=== PATIENT | female | born 1985 | race Caucasian/White ===

== ENCOUNTER 2020-01-20 16:09 | Emergency (ER) | payer OTHER, SELFPAY ==
[2020-01-20] MEDS ORDERED: LORazepam 2 MG/ML VIAL ONE ×2 (16:41→18:24)
[2020-01-20] MEDS ORDERED: NA CHLORIDE 0.9% 1,000 ML ONE (16:41)
[2020-01-20 17:07] LABS: Absolute Lymphocytes (CBC) 2.3 K/uL (0.7-4.9); Basophils % 0.7 % (0-1.3); Hematocrit 42.9 % (36.0-45.0); Lymphocytes % 24.1 % (15.3-44.8); MPV 7.6 fL (7.6-11.3); RBC Red Blood Cell Count 4.69 M/uL (3.86-4.86)
[2020-01-20 17:49] LABS: ALT/SGPT 32 U/L (12-78); AST/SGOT 20 U/L (15-37); Albumin 4.3 g/dL (3.4-5.0); Alkaline Phosphatase 82 U/L (45-117); BUN Blood Urea Nitrogen 11 mg/dL (7-18); Bicarbonate 20 mmol/L (21-32); Bilirubin Direct < 0.1 mg/dL (0-0.2); Bilirubin Total 0.3 mg/dL (0.2-1.0); Glucose Level 113 mg/dL (74-106); Magnesium 1.7 mg/dL (1.8-2.4); NT PRO-BNP 57 pg/mL (<125); Protein, Total 8.3 g/dL (6.4-8.2); Sodium Level 136 mmol/L (136-145); Troponin (Emerg Dept Use Only) < 0.02 ng/mL (0.0-0.045)
--- NOTE | 2020-01-20 17:49 | RAD REPORT ---
EXAM DESCRIPTION: CT - Head Brain Wo Cont - 01/20/2020 5:38 pm CLINICAL HISTORY: DIZZINESS Headache, drowsiness COMPARISON: <Comparisons> TECHNIQUE: All CT scans are performed using dose optimization technique as appropriate and may inclu de automated exposure control or mA/KV adjustment according to patient size. FINDINGS: No intracranial hemorrhage, hydrocephalus or extra-axial fluid collection.No areas of brai n edema or evidence of midline shift. The paranasal sinuses and mastoids are clear. The calvarium is intact. IMPRESSION: No acute intracranial abnormality.
--- NOTE | 2020-01-20 18:06 | RAD REPORT ---
EXAM DESCRIPTION: RAD - Chest Single View - 01/20/2020 6:01 pm CLINICAL HISTORY: syncope Chest pain. COMPARISON: No comparisons FINDINGS: Portable technique limits examination quality. The lungs are grossly clear. The heart is normal in size. No displaced fractures. IMPRESSION: No acute intrathoracic process suspected.
--- NOTE | 2020-01-20 18:17 | EDPHYS ---
Physician Documentation [facility] Name: Francine Bryant Age: 34 yrs Sex: Female : 1985 Arrival Date: 01/20/2020 Time: 16:20 Bed 17 Private MD: ED Physician jA Isaac HPI: 01/19 16:22 This 34 yrs old Female presents to ER via EMS with complaints of Dizziness. jmm 16:22 The patient presents with feeling faint, lightheadedness. Onset: The symptoms/episode jmm began/occurred acutely, just prior to arrival. Modifying factors: The symptoms are alleviated by nothing, the symptoms are aggravated by nothing. Associated signs and symptoms: Pertinent positives: tingling. This is a 34 year old female with a history of anxiety that presents to the ED with complaints of lightheadedness with tingling to her right arm. Denies weakness. States having multiple episodes since without tingling to her arm. Patient states having the sense she may faint. Denies chest pain. . Historical: - Allergies: 16:24 No Known Allergies; - Home Meds: 16:24 None [Active]; - PMHx: 16:24 Anxiety; - PSHx: 16:24 Tubal ligation; - Immunization history:: Adult Immunizations up to date. - Social history:: Smoking status: Patient denies any tobacco usage or history of. Patient uses alcohol, occasionally. ROS: 16:22 Constitutional: Negative for fever, chills, and weight loss, Cardiovascular: Negative jmm for chest pain, palpitations, and edema, Respiratory: Negative for shortness of breath, cough, wheezing, and pleuritic chest pain, Abdomen/GI: Negative for abdominal pain, nausea, vomiting, diarrhea, and constipation. 16:22 Neuro: Positive for dizziness. 16:22 All other systems are negative. Exam: 16:22 Constitutional: This is a well developed, well nourished patient who is awake, alert, jmm and in no acute distress. Head/Face: atraumatic. Eyes: EOMI, no conjunctival erythema appreciated ENT: Moist Mucus Membranes Neck: Trachea midline, Supple Chest/axilla: Normal chest wall appearance and motion. Cardiovascular: Regular rate and rhythm. No edema appreciated Respiratory: Normal respirations, no respiratory distress appreciated Abdomen/GI: Non distended, soft Back: Normal ROM Skin: General appearance color normal MS/ Extremity: Moves all extremities, no obvious deformities appreciated, no edema noted to the lower extremities Neuro: Awake and alert, normal gait Psych: Behavior is normal, Mood is normal, Patient is cooperative and pleasant 17:30 ECG was reviewed by the Attending Physician. [facility] Vital Signs: 16:11 BP 133 / 84; Pulse 92; Resp 24; Pulse Ox 99% ; ah 16:21 BP 133 / 84; Pulse 94; Resp 12; Temp 97.7; Pulse Ox 100% ; Weight 85.73 kg; Height 5 ah ft. 4 in. (162.56 cm); 17:00 BP 125 / 84; Pulse 91; Resp 17; Pulse Ox 100% ; ah 18:19 BP 127 / 85; Pulse 94; Resp 18; Pulse Ox 97% ; ah 16:21 Body Mass Index 32.44 (85.73 kg, 162.56 cm) MDM: 16:22 Patient medically screened. [facility] 18:07 Data reviewed: vital signs, nurses notes. Counseling: I had a detailed discussion with [facility] the patient and/or guardian regarding: the historical points, exam findings, and any diagnostic results supporting the discharge/admit diagnosis, lab results, radiology results, the need for outpatient follow up. 18:15 Data reviewed: lab test result(s), EKG, radiologic studies, CT scan, plain films. ED [facility] course: Patient states she feels much better. Patient is advised to follow up with pcp for reevaluation. Patient is otherwise given strict return precautions. Patient understood and agrees with the plan of care. . 01/19 16:29 Order name: Basic Metabolic Panel; Complete Time: 17:51 [facility] 01/19 16:29 Order name: CBC with Diff; Complete Time: 17:11 [facility] 01/19 16:29 Order name: LFT's; Complete Time: 17:51 [facility] 01/19 16:29 Order name: Magnesium; Complete Time: 17:51 [facility] 01/19 16:29 Order name: NT PRO-BNP; Complete Time: 17:51 [facility] 01/19 16:29 Order name: PT-INR; Complete Time: 17:11 [facility] 01/19 16:29 Order name: Troponin (emerg Dept Use Only); Complete Time: 17:51 [facility] 01/19 16:29 Order name: XRAY Chest (1 view); Complete Time: 18:17 [facility] 01/19 16:29 Order name: EKG; Complete Time: 16:30 [facility] 01/19 16:29 Order name: CT Head Brain wo Cont; Complete Time: 18:03 [facility] 01/19 18:17 Order name: Urine Dipstick--Ancillary (enter results) 01/19 16:29 Order name: Cardiac monitoring; Complete Time: 16:37 [facility] 01/19 16:29 Order name: EKG - Nurse/Tech; Complete Time: 17:08 [facility] 01/19 16:29 Order name: IV Saline Lock; Complete Time: 17:07 [facility] 01/19 16:29 Order name: Labs collected and sent; Complete Time: 17:07 [facility] 01/19 16:29 Order name: O2 Per Protocol; Complete Time: 17:06 [facility] 01/19 16:29 Order name: O2 Sat Monitoring; Complete Time: 17:06 [facility] 01/19 16:30 Order name: Urine Dipstick-Ancillary (obtain specimen); Complete Time: 18:14 jmm EC:30 Rate is 90 beats/min. Rhythm is regular. QRS [place] is Normal. IA interval is normal. QRS jmm interval is normal. QT interval is normal. No Q waves. T waves are Normal. No ST changes noted. Reviewed by me. Administered Medications: 16:44 Drug: Ativan 0.5 mg Route: IVP; Site: right antecubital; hb 18:14 Follow up: Response: No adverse reaction 16:45 Drug: NS 0.9% 1000 ml Route: IV; Rate: 1 bolus; Site: right antecubital; hb 18:14 Follow up: Response: No adverse reaction; IV Status: Completed infusion 18:21 Drug: Ativan 1 mg Route: IVP; Site: right antecubital; 21:20 Follow up: Response: No adverse reaction Disposition: 01/20 05:37 Co-signature as Attending Physician, Aj Isaac MD I agree with the assessment and rozina plan of care. Disposition: 01/20/20 18:16 Discharged to Home. Impression: Syncope and collapse. - Condition is Stable. - Discharge Instructions: Near-Syncope. - Medication Reconciliation Form, Thank You Letter, Antibiotic Education, Prescription Opioid Use form. - Follow up: Private Physician; When: 1 - 2 days; Reason: Recheck today's complaints, Continuance of care, Re-evaluation by your physician. Signatures: Dispatcher [employer] EDAj Ashley MD MD cha Mickail, Joel, PA PA jmm Baxter, Heather, KASANDRA SLAUGHTER Nettie Herr RN RN Corrections: (The following items were deleted from the chart) 01/19 19:03 18:16 01/20/2020 18:16 Discharged to Home. Impression: Syncope and collapse. Condition ah is Stable. Forms are Medication Reconciliation Form, Thank You Letter, Antibiotic Education, Prescription Opioid Use. Follow up: Private Physician; When: 1 - 2 days; Reason: Recheck today's complaints, Continuance of care, Re-evaluation by your physician. luciano
--- NOTE | 2020-01-20 18:17 | ER ---
Nurse's Notes [facility] Name: Francine Bryant Age: 34 yrs Sex: Female : 1985 Arrival Date: 01/20/2020 Time: 16:20 Bed 17 Private MD: Diagnosis: Syncope and collapse Presentation: 01/19 16:21 Chief complaint: EMS states: PT was sitting at her desk at work and became dizzy and ah felt her right arm was tingling. Pt states it may be anxiety. Coronavirus screen: Proceed with normal triage. Ebola Screen: No symptoms or risks identified at this time. Initial Sepsis Screen: Does the patient meet any 2 criteria? No. Patient's initial sepsis screen is negative. Does the patient have a suspected source of infection? No. Patient's initial sepsis screen is negative. Risk Assessment: Do you want to hurt yourself or someone else? Patient reports no desire to harm self or others. Onset of symptoms was January 20, 2020. 16:21 Method Of Arrival: EMS: [facility] 16:21 Acuity: HEIDI 3 Historical: - Allergies: 16:24 No Known Allergies; - Home Meds: 16:24 None [Active]; - PMHx: 16:24 Anxiety; - PSHx: 16:24 Tubal ligation; - Immunization history:: Adult Immunizations up to date. - Social history:: Smoking status: Patient denies any tobacco usage or history of. Patient uses alcohol, occasionally. Screenin:27 Abuse screen: Denies threats or abuse. Nutritional screening: No deficits noted. Tuberculosis screening: No symptoms or risk factors identified. Fall Risk None identified. Assessment: 16:20 General: Appears in no apparent distress. Behavior is cooperative, anxious. Pain: Denies pain. 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 Cardiovascular: Heart tones S1 S2 present Capillary refill < 3 seconds Patient's skin is warm and dry. Rhythm is sinus rhythm. Respiratory: Airway is patent Respiratory effort is even, unlabored. Derm: Skin is intact, is healthy with good turgor. 17:40 Reassessment: Pt returned from CT scan via WC. 17:50 Reassessment: awaiting on results to come back from lab and radiology. No needs voiced. Spouse at bedside. Vital Signs: 16:11 BP 133 / 84; Pulse 92; Resp 24; Pulse Ox 99% ; ah 16:21 BP 133 / 84; Pulse 94; Resp 12; Temp 97.7; Pulse Ox 100% ; Weight 85.73 kg; Height 5 ft. 4 in. (162.56 cm); 17:00 BP 125 / 84; Pulse 91; Resp 17; Pulse Ox 100% ; ah 18:19 BP 127 / 85; Pulse 94; Resp 18; Pulse Ox 97% ; ah 16:21 Body Mass Index 32.44 (85.73 kg, 162.56 cm) ED Course: 16:20 Patient arrived in ED. 16:20 Odell Crabtree PA is PHCP. [facility] 16:20 Aj Isaac MD is Attending Physician. [facility] 16:21 Nettie Herr, KASANDRA is Primary Nurse. 16:23 Triage completed. 16:45 Inserted saline lock: 20 gauge in right antecubital area, using aseptic technique. hb Blood collected. 17:08 Patient has correct armband on for positive identification. Bed in low position. Call mh5 light in reach. Adult w/ patient. Warm blanket given. equipment monitor phototypesetting on. Pulse ox on. NIBP on. 17:37 CT Head Brain wo Cont In Process Unspecified. EDMS 18:01 XRAY Chest (1 view) In Process Unspecified. EDMS 18:27 Patient notified of wait time. 18:50 No provider procedures requiring assistance completed. IV discontinued, intact, bleeding controlled, No redness/swelling at site. Pressure dressing applied. Administered Medications: 16:44 Drug: Ativan 0.5 mg Route: IVP; Site: right antecubital; hb 18:14 Follow up: Response: No adverse reaction 16:45 Drug: NS 0.9% 1000 ml Route: IV; Rate: 1 bolus; Site: right antecubital; hb 18:14 Follow up: Response: No adverse reaction; IV Status: Completed infusion 18:21 Drug: Ativan 1 mg Route: IVP; Site: right antecubital; 21:20 Follow up: Response: No adverse reaction Outcome: 18:16 Discharge ordered by MD. wolf 18:50 Discharged to home ambulatory. 18:50 Condition: good 18:50 Discharge instructions given to patient, Instructed on discharge instructions, follow up and referral plans. Demonstrated understanding of instructions, follow-up care. 19:03 Patient left the ED. Signatures: Dispatcher [employer] EDMS Odell Crabtree PA PA jmm Baxter, Heather, KASANDRA SLAUGHTER Vidhi Hayes [facility] Nettie Herr RN RN
[2020-01-20 19:12] VITALS: TEMP 97.7
[2020-01-20 19:13] LABS: Urine Blood NEGATIVE (NEG); Urine Glucose NEGATIVE (NEG); Urine Protein NEGATIVE (NEG)
[2020-01-20 19:14] VITALS: BP 127/85; O2SAT 97
--- NOTE | 2020-01-21 06:26 | EKG ---
Test Date: 2020-01-20 Test Time: 17:28:11 [employer] Machine Helper: YESICA MEASUREMENT RESULTS: Intervals: Rate: 90 IN: 182 QRSD: 86 QT: 368 QTc: 450 [place]: P: 47 IN: 182 QRS: 36 T: 24 INTERPRETIVE STATEMENTS: Normal sinus rhythm Normal ECG No previous ECG available for comparison Electronically Signed On 01-21-20 06:24:23 CDT by Jaleel Hinds
== END 2020-01-20 19:03 | disposition home or self-care (01) ==
LOC: ER 16:09
DX: R55 Syncope and collapse (principal)
CPT/HCPCS: 36415; 70450; 71045; 80048; 80076; 81003; 83735; 83880; 84484; 85025; 85610; 93005; 96361; 96374; 99284; J7030

== ENCOUNTER 2020-04-20 14:15 | Emergency (ER) | payer BC, SELFPAY ==
--- OUTSIDE RECORDS SUMMARY | 2020-04-20 14:31 | XMS REPORT | Continuity of Care Document ---
:1985 Author Organization [facility] [place] Information Exchange Care Team Providers Name Role Phone [facility] [place] [facility] Unavailable Un available Problems Problem Status Onset Classification Date Comments Sourc e Date Reported FLU LIKE Active [facility] SYMPTOMS 8 [place] R10.811 - RIGHT Active O PID UPPER QUADRANT 7 [place] and ABDOMINAL Generalized Active Problem 01/29/2020 [facility] anxiety Group disorder (disorder) Asthma Active Problem 01/29/2020 Medica l (disorder) Group, [facility] [place] Numbness of Active Problem 01/29/2020 [facility] upper limb Group (finding) Obesity Active Problem 01/29/2020 Medica l (disorder) Group, [facility] [place] Seasonal Active Problem 01/29/2020 Medica l allergic Group, rhinitis [facility] (disorder) [place] Medications Medication Details Route Status Patient Ordering Order Source Instructions Provider Date Sertraline 50 See Active 01/22/20 [facility] MG Oral Instructions 20 Medical Tablet , 1/2 tab PO Group [Zoloft] QHS x 1 week, thhen 1 full tab PO QHS., # 90 tab, 1 Refill(s), [facility]acy: [id number], 87, kg, 01/22/20 10:14:00 CDT, Weight Sertraline 50 See Active 11/01/19 MH MG Oral Instructions 18 Medical Tablet , 1/2 tab PO Group [Zoloft] QHS x 1 week, thhen 1 full tab PO QHS., # 30 tab, 2 Refill(s), Pharmacy: [facility] [id number] Allergies, Adverse Reactions, Alerts Substance Category Reaction Severity Reaction Status Date Comments S ource type Reported No Known Assertion Drug MH Medication allergy Medic al Allergies Group Immunizations No Data Provided for This Section Results Order Name Results Value Reference Date Interpretation Comments Barbara rce Range CHEM PANEL Glucose Lvl 93 65 - 99 01/21 Result Comment: Medical
Group Fasting reference interval

Lab test performed by:
[facility]
[address]
[place] [id number]
Enmanuel Solorzano CHEM PANEL BUN 14 7 - 25 01/21 Medical Group CHEM PANEL Creatinine 0.77 0.50 - 01/21 MH Lvl 1.10 Medical Group CHEM PANEL eGFR NON-AFR. 101 > OR = 60 01/21 [place] mL/min/1.7 /2019 Medical 3m2 Group CHEM PANEL eGFR 117 > OR = 60 01/21 [place] mL/min/1.7 /2020 Medical 3m2 Group CHEM PANEL B/C Ratio NOT 6 - 22 01/21 APPLICABLE Medical Group CHEM PANEL Sodium Lvl 137 135 - 146 01/21 MH [facility] CHEM PANEL Potassium Lvl 4.6 3.5 - 5.3 01/21 [facility] Group CHEM PANEL Chloride Lvl 104 98 - 110 01/21 [facility] Group CHEM PANEL CO2 24 20 - 32 01/21 [facility] CHEM PANEL Calcium Lvl 9.3 8.6 - 10.2 01/21 MH [facility] CHEM PANEL Total Protein 7.1 6.1 - 8.1 01/21 MH [facility] CHEM PANEL Albumin Lvl 4.4 3.6 - 5.1 01/21 [facility] CHEM PANEL Globulin 2.7 1.9 - 3.7 01/21 [facility] CHEM PANEL A/G Ratio 1.6 1.0 - 2.5 01/21 Medical Group CHEM PANEL Bili Total 0.4 0.2 - 1.2 01/21 [facility] CHEM PANEL Alk Phos 64 31 - 125 01/21 MH [facility] Group CHEM PANEL ASPARTATE 17 10 - 30 01/21 TRANSAMINASE Medical Group CHEM PANEL ALANINE 19 6 - 29 01/21 AMINOTRANSFER /2019 Medical ASE Group HEMATOLOGY WBC X 10x3 5.8 3.8 - 10.8 01/21 Result Comment: Medical
Lab Group test performed by:
[facility]
[address]
[place] [id number]
Enmanuel Solorzano HEMATOLOGY RBC X 10x6 4.53 3.80 - 01/21 MH 5.10 Medical Group HEMATOLOGY Hgb 13.9 11.7 - 01/21 MH 15.5 Medical Group HEMATOLOGY Hct 42.7 35.0 - 01/21 MH 45.0 Medical Group HEMATOLOGY MCV 94.3 80.0 - 01/21 MH 100.0 Medical Group HEMATOLOGY MCH 30.7 27.0 - 01/21 MH 33.0 Medical Group HEMATOLOGY MCHC 32.6 32.0 - 01/21 MH 36.0 Medical Group HEMATOLOGY RDW 11.9 11.0 - 01/21 MH 15.0 Medical Group HEMATOLOGY Platelet 261 140 - 400 01/21 Medical [facility] HEMATOLOGY MPV 8.8 7.5 - 12.5 01/21 Medical [facility] HEMATOLOGY Neutrophils # 3909 1500 - 01/21 MH 7800 Medical Group HEMATOLOGY Lymphocytes # 1386 850 - 3900 01/21 Medical [facility] HEMATOLOGY Monocytes # 412 200 - 950 01/21 Medical Group HEMATOLOGY Eosinophils # 52 15 - 500 01/21 Medical [facility] HEMATOLOGY Basophils # 41 0 - 200 01/21 Medical [facility] HEMATOLOGY Segs 67.4 01/21 Medical [facility] HEMATOLOGY Lymphocytes 23.9 01/21 Medical [facility] HEMATOLOGY Monocytes 7.1 01/21 Medical [facility] HEMATOLOGY Eosinophils 0.9 01/21 Medical [facility] HEMATOLOGY Basophils 0.7 01/21 Medical Group LIPIDS Chol 173 <200 mg/dL 01/21 Result Comment: Medical
Lab Group test performed by:
[facility]
[address]
[place] [id number]
Enmanuel Solorzano LIPIDS HDL 57 > OR = 50 01/21 mg/dL Medical Group LIPIDS Trig 90 <150 mg/dL 01/21 Medical Group LIPIDS LDL 98 01/21 Result (Calculated) Comment: Medical Reference Group range: <100

Desirabl e range <100 mg/dL for primary prevention;
<70 mg/dL for patients with CHD or diabetic patients
with > or = 2 CHD risk factors.

LDL-C is now calculated using the Bridget s
calculat ion, which is a validated novel method providing
better accuracy than the Friedewald equation in the
estimati on of LDL-C.
Nirav SIMENTAL et al. ESTEE. 2013;310(19): 7098-1982
(http:// education.[employer] .Bebo/faq/FAQ1 64) LIPIDS CHD Risk 3.0 <5.0 01/21 (CALC) Medical Group LIPIDS Non HDL Chol 116 <130 mg/dL 01/21 Result Comment: For Medical patients with Group diabetes plus 1 major ASCVD risk
factor, treating to a non-HDL-C goal of <100 mg/dL
(LDL-C of <70 mg/dL) is considered a therapeutic
option. Pathology Reports No Data Provided for This Section Diagnostic Reports Report Value Date Source Chest 2 views DX CHEST TWO VIEW 08/27/2017 [facility] INDICATION: Cough. COMPARISON: None. FINDINGS: The lungs are akash r. The pleura, cardiomediastinal silhouette and bony thorax are normal. IMPRESSION: Negative. END IMPRESSION SL: WR1-M Abdomen RUQ US PROCEDURE: RIGHT UPPER QUADRANT ULTRASOUND 10/13 JUANA Teixeira CLINICAL INDICATION: R10.811. Right upper quadra nt abdominal tenderness. COMPARISON: None. TECHNIQUE: Grayscale and brito ited color sonographic evaluation of the right upper quadrant of the abdomen and gallbladder region was performed with standard technique. Static images are submitted. FINDINGS: LIVER: The visualized liver shows n ormal contour, size and morphology with normal echotexture. The maximal craniocaudad dimension of the liver measures approximately 14 cm. The main portal vein measures 1 cm. Hepatopedal flow is demonstr ated in the main portal vein by spectral Doppler analysis. BILE DUCTS: The intrahepatic and extrahe patic bile ducts are not dilated with the visualized common bile duct measuring 0.24 cm. GALLBLADDER: There are no gallstones, gal lbladder sludge, pericholecystic fluid or wall thickening. The event producer reports a negative sonographic Jimenez's sign. PANCREAS: The pancreas is partially obscured. The visualiz ed pancreas is unremarkable. KIDNEY: There is normal right renal contour and morphology with normal parenchymal echotexture. There is no hydronephrosis. The right kidney measures 10.8 x 4.1 x 5.1 cm. AORTA AND INFERIOR VENA CAVA: Visualized portions appear unremarkable. ASCITES: There is no right upper quadrant abdominal ascit es. IMPRESSION: Unremarkable right upper quadrant ab domen ultrasound. SL: 15 Consultation Notes No Data Provided for This Section Discharge Summaries No Data Provided for This Section History and Physicals No Data Provided for This Section Vital Signs Vital Sign Value Date Comments Source Systolic (mm Hg) 126 01/22/2020 Medical Group Diastolic (mm Hg) 83 01/22/2020 Medical Group Heart Rate 92 01/22/2020 Medical Grou p Temperature Oral (F) 98.4 F 01/22/2020 Medi dany Group Weight 87 01/22/2020 Medical Grou p BMI Calculated 28.48 10/31/2017 Medical Gr oup Weight 75.273 10/31/2017 Medical Grou p Height 162.56 cm 10/31/2017 Medical Grou p Temperature Oral (F) 98.2 F 10/31/2017 Medi dany Group Heart Rate 75 10/31/2017 Medical Grou p Systolic (mm Hg) 112 10/31/2017 Medical Group Diastolic (mm Hg) 72 10/31/2017 Medical Group Encounters Location Location Encounter Encounter Reason Attending ADM NV Stat us Source Details Type Number For Provider Date Date Visit Outpatient [id number] [place] 10/09 Formerly Named [facility] Outpt Diag [id number] 10/13 [facility] [place] [facility] [id number] 09/04 Formerly Named [facility] [id number] 09/04 Primary [facility] Outpatient [id number] 10/31 Formerly Named [facility] Outpatient [id number] 10/31 Primary [place] /2017 [facility] Outpatient [id number] [place] 01/21 Active [facility] [id number] [place] 01/21 01/22 Primary [place] /2019 [facility] Between [id number] 01/25 01/26 Primary Visit /2019 [facility] Procedures Procedure Code Date Perfomer Comments Source PAP smear [id number] 01/04/2019 Medical preparation Group Tubal ligation [id number] Medical Group, JUANA Teixeira Assessment and Plan No Data Provided for This Section Plan of Care No Data Provided for This Section Social History Social History Date Source Social History TypeResponse 10/09/2016 [facility] [place] Alcohol Current Smoking Status Never smoker; Exposure to Tobacco Smoke None; Cigarette Smoking Last 365 Days No; Reg Smoking Cessation Counseling No Social History TypeResponse 10/09/2016 [facility] [place] Alcohol Current Smoking Status Never smoker; Exposure to Tobacco Smoke None; Cigarette Smoking Last 365 Days No; Reg Smoking Cessation Counseling No entered on: 01/22/20 Family History No Data Provided for This Section Advance Directives No Data Provided for This Section Functional Status No Data Provided for This Section
--- OUTSIDE RECORDS SUMMARY | 2020-04-20 14:32 | XMS REPORT | Summary of Care ---
:1985 Author Organization [facility] Primary Care Luis Address [address] [place] [address]- Encounter HQ Encntr_alias(FIN) [id number] Date(s): 01/26/20 - 01/27/20 [facility] Care Luis [address] [place] [address]- [phone] Vital Signs No data available for this section Problem List Condition Effective Dates Status Health Status Informant Anxiety, generalized(Confirmed) Active Asthma(Confirmed) Active Right arm numbness(Confirmed) Active Obesity(Confirmed) Active Seasonal allergies(Confirmed) Active Allergies, Adverse Reactions, Alerts No Known Medication Allergies Medications No data available for this section Results No data available for this section Immunizations No data available for this section Procedures Procedure Date Related Diagnosis Body Site Status PAP smear preparation 01/04/19 Comple leonela Tubal ligation Completed Social History Social History Type Response Alcohol Current Smoking Status Never smoker; Exposure to To bacco Smoke None; Cigarette Smoking Last 365 Days No; Reg Smoking Cessation Counseling No entered on: 01/22/20 Assessment and Plan No data available for this section
--- OUTSIDE RECORDS SUMMARY | 2020-04-20 14:32 | XMS REPORT | Continuity of Care Document ---
:1985 Author Organization [facility] t Address [address] [place] [address] Care Team Providers Name Role Phone Robert Armstrong Attending Clinician Problems Condition Condition Condition Status Onset Resolution Last Treating Co mments Source Name Details Category Date Date Treatment Clinician Date FLU LIKE Diagnosis Active 2017-08-27 M emoria SYMPTOMS -22 21:59:00 l FLU LIKE 00:00: Jason n SYMPTOMS 00 Active 08/27/2017 [facility] R10.811 - Diagnosis Active 2016-10-13 Memoria RIGHT 3-08 15:54:00 l UPPER R10.811 00:01: Cornelius QUADRANT - RIGHT 00 ABDOMINAL UPPER QUADRANT ABDOMINAL Active 10/11/2016 [facility] [place] Generalize Problem Active 2020-01-29 M emoria d anxiety 22:18:33 l disorder [place] (disorder) Generalize d anxiety disorder (disorder) Active Problem 01/29/2020 [facility] Asthma Problem Active 2020-01-29 Memor ia (disorder) 22:18:33 l Asthma [place] (disorder) [facility] [place] Numbness Problem Active 2020-01-29 Mem oria of upper 22:18:33 l limb Numbness Jason n (finding) of upper limb (finding) Active Problem 01/29/2020 [facility] Obesity Problem Active 2020-01-29 [place] (disorder) 22:18:33 l Obesity [place] (disorder) Active Problem 01/29/2020 [facility] [place] Seasonal Problem Active 2020-01-29 Mem oria allergic 22:18:33 l rhinitis Seasonal Herm josr (disorder) allergic rhinitis (disorder) Active [facility], Adverse Reactions, Alerts Allergy Allergy Status Severity Reaction(s) Onset Inactive Treating Comm ents Source Name Type Date Date Clinician No Known No Known Active Ireneori a Medicati Medicati l on on [place] Allergie Allergie s s Social History Social Habit Start Date Stop Date Quantity Comments Source Social History 2016-10-09 2016-10-09 Keyon lopes 20:44:21 20:44:21 Medications Ordered Filled Start Stop Current Ordering Indication Dosage Frequency Signature Comments Components Source Medication Medication Date Date Medication? Clinician (SIG) Name Name Sertraline Yes See Memoria 50 MG Oral 6-18 Instructio l Tablet 15:31: ns, 1/2 Cornelius [Zoloft] 00 tab PO QHS x 1 week, thhen 1 full tab PO QHS., # 90 tab, 1 Refill(s), Pharmacy: [id number], 87, kg, 01/22/20 10:14:00 CDT, Weight Sertraline Yes See Memoria 50 MG Oral 3-28 Instructio l Tablet 19:00: ns, 1/2 Cornelius [Zoloft] 00 tab PO QHS x 1 week, thhen 1 full tab PO QHS., # 30 tab, 2 Refill(s), Pharmacy: [id number] Vital Signs Vital Name Observation Time Observation Value Comments Source Systolic (mm Hg) 2020-01-22 15:14:00 [place] rial [place]elius Diastolic (mm Hg) 2020-01-22 15:14:00 Mem orial [place] Heart Rate 2020-01-22 15:14:00 [facility] [place] Temperature Oral (F) 2020-01-22 15:14:00 98.4 F [facility] [place] Weight 2020-01-22 15:14:00 [facility] [place] BMI Calculated 2017-10-31 18:39:00 Memori al [place] Weight 2017-10-31 18:39:00 [facility] [place] Height 2017-10-31 18:39:00 162.56 cm [facility] [place] Temperature Oral (F) 2017-10-31 18:39:00 98.2 F [facility] Cornelius Heart Rate 2017-10-31 18:39:[facility] 2017-10-31 18:39:00 [place] rial [place] Diastolic (mm Hg) 2017-10-31 18:39:00 Mem orial [place] Procedures Procedure Date / Time Performed Performing Clinician Sour e PAP smear preparation 2019-01-04 05:00:00 Memori al [place] Tubal ligation [facility] [place] Encounters Start End Encounter Admission Attending Care Care Encounter Source Date/Time Date/Time Type Type Clinicians Facility Department ID 2020-01-26 2020-01-27 Outpatient [facility] [id number] 14:42:27 14:42:27 04 2020-01-22 2020-01-22 Outpatient HARJINDER [facility] [id number] 10:00:00 23:59:59 Merrick Robert 2017-10-31 2017-10-31 Outpatient Patti [facility] [id number] 13:30:00 23:59:59 Merrick Robert 2017-09-04 2017-09-04 Outpatient Patti [facility] [id number] 08:30:00 08:30:00 Merrick Robert 2016-10-13 2016-10-13 Outpatient Patti MHOIP MHOIP [id number] 15:15:00 23:59:00 Merrick Robert 00 Results Test Description Test Time Test Comments Results Result Comments Source CHEM PANEL 2020-01-22 93 [facility] nn 15:48:00 CHEM PANEL 2020-01-22 14 [facility] [place] [facility] 15:48:00 CHEM PANEL 2020-01-22 0.77 [facility] [place] [facility] 15:48:00 CHEM PANEL 2020-01-22 101 [facility] [place] [facility] 15:48:00 CHEM PANEL 2020-01-22 117 [facility] [place] nn 15:48:00 CHEM PANEL 2020-01-22 137 [facility] [place] nn 15:48:00 CHEM PANEL 2020-01-22 4.6 [facility] [place] nn 15:48:00 CHEM PANEL 2020-01-22 104 [facility] [place] nn 15:48:00 CHEM PANEL 2020-01-22 24 [facility] [place] nn 15:48:00 CHEM PANEL 2020-01-22 9.3 [facility] [place] nn 15:48:00 CHEM PANEL 2020-01-22 7.1 [facility] [place] [facility] 15:48:00 CHEM PANEL 2020-01-22 4.4 [facility] [place] nn 15:48:00 CHEM PANEL 2020-01-22 2.7 [facility] [place] nn 15:48:00 CHEM PANEL 2020-01-22 1.6 [facility] [place] nn 15:48:00 CHEM PANEL 2020-01-22 0.4 [facility] [place] nn 15:48:00 CHEM PANEL 2020-01-22 64 [facility] [place] nn 15:48:00 CHEM PANEL 2020-01-22 17 [facility] [place] nn 15:48:00 CHEM PANEL 2020-01-22 19 [facility] [place] nn 15:48:00 HEMATOLOGY 2020-01-22 5.8 [facility] [place] nn 15:48:00 HEMATOLOGY 2020-01-22 4.53 [facility] [place] nn 15:48:00 HEMATOLOGY 2020-01-22 13.9 [facility] [place] nn 15:48:00 HEMATOLOGY 2020-01-22 42.7 [facility] [place] nn 15:48:00 HEMATOLOGY 2020-01-22 94.3 [facility] [place] nn 15:48:00 HEMATOLOGY 2020-01-22 15:48:00 Test Item Value Reference Range Interpretation Comme nts MCH (test code = MCH) 30.7 pg 27.0-33.0 Memorial RlczkpwHMEPVAFJSL0514-39-98 15:48:0032.6[facility] 2020-01-22 15:48:0011.9[facility] KxxfknsCTMGNCTTQW8267-70-21 15:48:56725Sqpduwdf SgxspmuOYOZXKEOCM7391-81-61 15:48:008.8[facility]orial SppckfzHYEJWMIJLN2406-60-66 15:48:313386Sboqsfoq RjqfpfuQHGODTMPAL4625-70-03 15:48:223495Epjwtgbz Cornelius WYEYBNSQVP7774-32-14 15:48:02154Ktchymbm CevvbfdRHDWSHHKHC8503-63-07 15:48:0052 Memorial JnzizltBRZTQOXPRP1743-83-10 15:48:0041[facility]ann[facility]MATOLOGY 2020-01-22 15:48:0067.4[facility]orial OjxbgwtZGNJMSLZEX9088-80-24 15:48:0023.9[facility] UvmbxwlNZVSHRVJKE3272-36-94 15:48:007.1[facility] KzqcfpnLYJYDAKYHC4774-99-58 15:48:000.9[facility]orial WjnsbjxTLOWVGYNVE6425-19-65 15:48:000.7[facility] [place] GEMDXN8209-95-12 15:48:06699Cqygteik TzjijupFHQVFP1729-91-54 15:48:0057Mem[facility] RipfullZBXINQ8790-32-57 15:48:0090[facility] MsaiwcpECTXEX3337-70-59 15:48:0098 Memorial ZvutcdoVKFKZL9876-60-29 15:48:003.0[facility] MdtsypfNETFAL9582-15-32 15:48:86366Dhhgmhrc Cornelius
--- OUTSIDE RECORDS SUMMARY | 2020-04-20 14:32 | XMS REPORT | Summary of Care ---
:1985 Author Organization [facility] Primary Care Luis Address [address] [place] [address]- Encounter HQ Pravin_queenie(FIN) [id number] Date(s): 01/22/20 - 01/22/20 [facility] Primary Care Luis [address] [place] [address]- [phone] Discharge Disposition: Home or Self Care Attending Physician: Merrick Armstrong MD Vital Signs Most recent to oldest [Reference Range]: 1 Temperature Oral [96.4-99.1 DegF] 98.4 DegF (01/22/20 10:14 AM) Blood Pressure [90-140/60-90 mmHg] 126/83 mmHg (01/22/20 10:14 AM) Peripheral Pulse Rate [60-100 bpm] 92 bpm (01/22/20 10:14 AM) Weight 87 kg (01/22/20 10:14 AM) Problem List Condition Effective Dates Status Health Status Informant Anxiety, generalized(Confirmed) Active Asthma(Confirmed) Active Right arm numbness(Confirmed) Active Obesity(Confirmed) Active Seasonal allergies(Confirmed) Active Allergies, Adverse Reactions, Alerts No Known Medication Allergies Medications Zoloft 50 mg oral tablet See Instructions, 1/2 tab PO QHS x 1 week, thhen 1 full tab PO QHS., # 90 tab, 1 Refill(s), Pharmacy: [facility] #[id number], 87, kg, 01/22/20 10:14:00 CDT, Weight Start Date: 01/22/20 Status: Ordered Results Most recent to oldest [Reference Range]: 1 Neutrophils # [8618-5842 Cells/uL] 3909 Cells/uL *N* (01/22/20 10:48 AM) Lymphocytes # [850-3900 Cells/uL] 1386 Cells/uL *N* (01/22/20 10:48 AM) Monocytes # [200-950 Cells/uL] 412 Cells/uL *N* (01/22/20 10:48 AM) Eosinophils # [15-500 Cells/uL] 52 Cells/uL *N* (01/22/20 10:48 AM) Basophils # [0-200 Cells/uL] 41 Cells/uL *N* (01/22/20 10:48 AM) Non HDL Chol [<130 mg/dL] 116 mg/dL 1 *N* (01/22/20 10:48 AM) eGFR NON-AFR. [place] [> OR = 60 mL/min/1.73m2] 101 m L/min/1.73m2 *N* (01/22/20 10:48 AM) eGFR [> OR = 60 mL/min/1.73m2] 117 mL /min/1.73m2 *N* (01/22/20 10:48 AM) A/G Ratio [1.0-2.5 (CALC)] 1.6 (CALC) *N* (01/22/20 10:48 AM) Albumin Lvl [3.6-5.1 g/dL] 4.4 g/dL *N* (01/22/20 10:48 AM) Alk Phos [31-125 unit/L] 64 unit/L *N* (01/22/20 10:48 AM) ALT [6-29 unit/L] 19 unit/L *N* (01/22/20 10:48 AM) AST [10-30 unit/L] 17 unit/L *N* (01/22/20 10:48 AM) B/C Ratio [6-22] NOT APPLICABLE (01/22/20 10:48 AM) Basophils 0.7 % *N* (01/22/20 10:48 AM) BUN [7-25 mg/dL] 14 mg/dL *N* (01/22/20 10:48 AM) Calcium Lvl [8.6-10.2 mg/dL] 9.3 mg/dL *N* (01/22/20 10:48 AM) CHD Risk [<5.0 (CALC)] 3.0 (CALC) *N* (01/22/20 10:48 AM) Chol [<200 mg/dL] 173 mg/dL 2 *N* (01/22/20 10:48 AM) Chloride Lvl [98-110 mMol/L] 104 mMol/L *N* (01/22/20 10:48 AM) CO2 [20-32 mMol/L] 24 mMol/L *N* (01/22/20 10:48 AM) Creatinine Lvl [0.50-1.10 mg/dL] 0.77 mg/dL *N* (01/22/20 10:48 AM) Eosinophils 0.9 % *N* (01/22/20 10:48 AM) Globulin [1.9-3.7 g/dL] 2.7 g/dL *N* (01/22/20 10:48 AM) Glucose Lvl [65-99 mg/dL] 93 mg/dL 3 *N* (01/22/20 10:48 AM) Hct [35.0-45.0 %] 42.7 % *N* (01/22/20 10:48 AM) HDL [> OR = 50 mg/dL] 57 mg/dL *N* (01/22/20 10:48 AM) Hgb [11.7-15.5 g/dL] 13.9 g/dL *N* (01/22/20 10:48 AM) Potassium Lvl [3.5-5.3 mMol/L] 4.6 mMol/L *N* (01/22/20 10:48 AM) LDL (Calculated) 98 mg/dL 4 *N* (01/22/20 10:48 AM) Lymphocytes 23.9 % *N* (01/22/20 10:48 AM) MCH [27.0-33.0 pg] 30.7 pg *N* (01/22/20 10:48 AM) MCHC [32.0-36.0 g/dL] 32.6 g/dL *N* (01/22/20 10:48 AM) MCV [80.0-100.0 fL] 94.3 fL *N* (01/22/20 10:48 AM) Monocytes 7.1 % *N* (01/22/20 10:48 AM) MPV [7.5-12.5 fL] 8.8 fL *N* (01/22/20 10:48 AM) Sodium Lvl [135-146 mMol/L] 137 mMol/L *N* (01/22/20 10:48 AM) Platelet [140-400 K/CMM] 261 K/CMM *N* (01/22/20 10:48 AM) Segs 67.4 % *N* (01/22/20 10:48 AM) Total Protein [6.1-8.1 g/dL] 7.1 g/dL *N* (01/22/20 10:48 AM) RBC [3.80-5.10 M/CMM] 4.53 M/CMM *N* (01/22/20 10:48 AM) RDW [11.0-15.0 %] 11.9 % *N* (01/22/20 10:48 AM) Bili Total [0.2-1.2 mg/dL] 0.4 mg/dL *N* (01/22/20 10:48 AM) Trig [<150 mg/dL] 90 mg/dL *N* (01/22/20 10:48 AM) WBC [3.8-10.8 K/CMM] 5.8 K/CMM 5 *N* (01/22/20 10:48 AM) 1Result Comment: For patients with diabetes plus 1 major ASCVD risk factor, treating to a non-HDL-C goal of <100 mg/dL (LDL-C of <70 mg/dL) is considered a therapeutic option.2Result Comment: Lab test performed by: [facility] [address] [place] [phone] Enmanuel Solorzano3Result Comment: Fasting reference interval Lab test performed by: [facility] [address] [place] [phone] Enmanuel Solorzano4Result Comment: Reference range: <100 Desirable range <100 mg/dL for primary prevention; <70 mg/dL for patients with CHD or diabetic patients with > or = 2 CHD risk factors. LDL-C is now calculated using the Nirav-Nathan calculation, which is a validated novel method providing better accuracy than the Friedewald equation in the estimation of LDL-C. Nirav SS et al. ESTEE. 2013;310(60): 6808-3135 (http://education.Xoopit/faq/MII700)5Result Comment: Lab test performed by: [facility] [address] [place] [phone] Enmanuel Solorzano Immunizations No data available for this section [...]
[2020-04-20] MEDS ORDERED: NA CHLORIDE 0.9% 1,000 ML ONE (14:42)
[2020-04-20 14:52] LABS: Absolute Lymphocytes (CBC) 2.1 K/uL (0.7-4.9); Basophils % 0.8 % (0-1.3); Hematocrit 40.4 % (36.0-45.0); Lymphocytes % 26.4 % (15.3-44.8); MPV 7.2 fL (7.6-11.3); RBC Red Blood Cell Count 4.48 M/uL (3.86-4.86)
[2020-04-20 15:05] LABS: Urine Blood NEGATIVE (NEG); Urine Glucose NEGATIVE (NEG); Urine Protein NEGATIVE (NEG); Urine Specific Gravity 1.025 (1.005-1.030); Urine pH 8.5 (5.0-7.0)
[2020-04-20] MEDS ORDERED: LORazepam 2 MG/ML VIAL ONE (15:08)
[2020-04-20 15:15] LABS: ALT/SGPT 40 U/L (12-78); AST/SGOT 20 U/L (15-37); Albumin 3.9 g/dL (3.4-5.0); Alkaline Phosphatase 111 U/L (45-117); BUN Blood Urea Nitrogen 12 mg/dL (7-18); Bicarbonate 22 mmol/L (21-32); Bilirubin Direct < 0.1 mg/dL (0-0.2); Bilirubin Total 0.2 mg/dL (0.2-1.0); Glucose Level 124 mg/dL (74-106); Potassium 3.3 mmol/L (3.5-5.1); Protein, Total 8.1 g/dL (6.4-8.2); Sodium Level 139 mmol/L (136-145)
[2020-04-20 15:32] LABS: Barbiturates NEGATIVE (NEGATIVE); Benzodiazepines NEGATIVE (NEGATIVE); Cocaine NEGATIVE (NEGATIVE); METHAMPHETAM NEGATIVE (NEGATIVE); Methadone NEGATIVE (NEGATIVE); Opiates NEGATIVE (NEGATIVE); Phencyclidine NEGATIVE (NEGATIVE); THC Cannibis NEGATIVE (NEGATIVE)
--- NOTE | 2020-04-20 15:44 | ER ---
Nurse's Notes [facility] Name: Francine Bryant Age: 35 yrs Sex: Female : 1985 Arrival Date: 04/20/2020 Time: 14:22 Bed 25 [facility] MD: Diagnosis: Anxiety disorder, unspecified Presentation: 04/20 14:23 Chief complaint: Patient states: anxiety and feeling as if she is going to pass out ss that began prior to arrival. Pt reports that since January she has been having more and more panic attacks and the Sertraline is not helping. Coronavirus screen: Client denies travel out of the [place] in the last 14 days. Ebola Screen: Patient denies exposure to infectious person. Patient denies travel to an Ebola-affected area in the 21 days before illness onset. Initial Sepsis Screen: Does the patient meet any 2 criteria? RR > 20 per min. HR > 90 bpm. Does the patient have a suspected source of infection? No. Patient's initial sepsis screen is negative. Risk Assessment: Do you want to hurt yourself or someone else? Patient reports no desire to harm self or others. Onset of symptoms was April 20, 2020. 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 - Social history:: Smoking status: Patient denies any tobacco usage or history of. Patient/guardian denies using street drugs. Screenin:36 Abuse screen: Denies threats or abuse. Nutritional screening: No deficits noted. jd3 Tuberculosis screening: No symptoms or risk factors identified. Fall Risk Ambulatory Aid- None/Bed Rest/Nurse Assist (0 pts). Gait- Normal/Bed Rest/Wheelchair (0 pts) Mental Status- Oriented to own ability (0 pts). Total Hernandez Fall Scale indicates No Risk (0-24 pts). Assessment: 14:37 General: Appears uncomfortable, Behavior is cooperative, appropriate for age, anxious, jd3 restless, Reports anxiety. Pain: Complains of pain in chest Quality of pain is described as pressure. Neuro: Level of Consciousness is awake, alert, obeys commands, Oriented to person, place, time, situation. Cardiovascular: Capillary refill < 3 seconds Patient's skin is warm and dry. Rhythm is sinus tachycardia. Respiratory: Airway is patent Respiratory effort is even, unlabored, Respiratory pattern is regular, symmetrical, Denies cough. GI: Abdomen is round non-distended, Abd is soft and non tender X 4 quads. Reports nausea, Patient currently denies abdominal pain. : No signs and/or symptoms were reported regarding the genitourinary system. EENT: No signs and/or symptoms were reported regarding the EENT system. Derm: Skin is intact, Skin is dry, Skin is normal, Skin temperature is warm. Musculoskeletal: Circulation, motion, and sensation intact. Range of motion: intact in all extremities. 15:34 Reassessment: Patient and/or family updated on plan of care and expected duration. Pain jd3 level reassessed. Patient is alert, oriented x 3, equal unlabored respirations, skin warm/dry/pink. Patient states feeling better. 16:00 Reassessment: Patient appears in no apparent distress at this time. Patient and/or jd3 family updated on plan of care and expected duration. Pain level reassessed. Patient is alert, oriented x 3, equal unlabored respirations, skin warm/dry/pink. Patient states feeling better. Vital Signs: 14:23 BP 140 / 98; Pulse 134; Resp 26; Temp 98.5(O); Pulse Ox 98% on R/A; Weight 87.09 kg; Height 5 ft. 4 in. (162.56 cm); 14:39 BP 131 / 92; Pulse 109; Resp 22 S; Pulse Ox 98% on R/A; jd3 15:27 BP 126 / 84; Pulse 107; Resp 16; Pulse Ox 96% on R/A; ll2 14:23 Body Mass Index 32.96 (87.09 kg, 162.56 cm) ED Course: 14:22 Patient arrived in ED. ds1 14:24 Aj Isaac MD is Attending Physician. rozina 14:25 Triage completed. 14:25 Aj Lisa PA is PHCP. cp 14:26 Arm band placed on right wrist. 14:36 Patient has correct armband on for positive identification. Bed in low position. Call jd3 light in reach. Side rails up X 1. electronic device monitor on. Pulse ox on. NIBP on. 14:36 Inserted saline lock: 20 gauge in left antecubital area, using aseptic technique. Blood jd3 collected. 14:39 Rangel Guthrie, RN is Primary Nurse. jd3 16:00 No provider procedures requiring assistance completed. IV discontinued, intact, jd3 bleeding controlled, No redness/swelling at site. Pressure dressing applied. Administered Medications: 14:39 Drug: NS 0.9% 1000 ml Route: IV; Rate: 1 bolus; Site: left antecubital; jd3 15:35 Follow up: Response: No adverse reaction; IV Status: Completed infusion; IV Intake: jd3 1000ml 15:00 Drug: Ativan 0.5 mg Route: IVP; Site: left antecubital; jd3 16:00 Follow up: Response: No adverse reaction jd3 15:44 Drug: Potassium Effervescent Tablet 25 mEq Route: PO; jd3 16:00 Follow up: Response: No adverse reaction jd3 Intake: 15:35 IV: 1000ml; Total: 1000ml. jd3 Outcome: 15:44 Discharge ordered by . cp 16:00 Discharged to home ambulatory, with family. jd3 16:00 Condition: stable 16:00 Discharge instructions given to patient, Instructed on discharge instructions, follow up and referral plans. medication usage, Demonstrated understanding of instructions, follow-up care, medications, Prescriptions given X 1. 16:01 Patient left the ED. jd3 Signatures: Aj Isaac MD MD cha Sanford, Demi ds1 Janette Barlow RN RN Aj Smyth PA PA cp Davies, Jonathon, RN RN jd3 Rita Degroot RN RN ll2
--- NOTE | 2020-04-20 15:44 | EDPHYS ---
Physician Documentation [facility] Name: Francine Bryant Age: 35 yrs Sex: Female : 1985 Arrival Date: 04/20/2020 Time: 14:22 Bed 25 Private MD: ED Physician Aj Isaac HPI: 04/20 14:30 This 35 yrs old Female presents to ER via Ambulatory with complaints of cp Anxiety, Dizziness. 14:30 The patient presents to the emergency department with anxiety, over unknown cp circumstances. 14:30 Onset: The symptoms/episode began/occurred gradually, and became worse 3 month(s) ago. cp 14:30 Past psychiatric history: Prior diagnosis: Anxiety, Psychiatric medications include: cp Zoloft. Associated signs and symptoms: Pertinent positives; dizziness, Pertinent negatives: abdominal pain, chest pain, depression, hallucinations, substance abuse, suicide ideation. Severity of symptoms: in the emergency department the symptoms are unchanged despite home interventions. CLAIM REPRESENTATIVE: 16:00 LMP N/A - Irregular menses jd3 Historical: - Allergies: 14:26 No Known Allergies; ss - Home Meds: 14:26 sertraline 50 mg oral tab 1 tab once daily [Active]; ss - PMHx: 14:26 Anxiety; ss - PSHx: 14:26 Tubal ligation; ss - Immunization history:: Adult Immunizations up to date. - Social history:: Smoking status: Patient denies any tobacco usage or history of. Patient/guardian denies using street drugs. ROS: 14:30 Neuro: Positive for dizziness. cp 14:30 Constitutional: Negative for body aches, chills, fever. cp 14:30 Cardiovascular: Positive for chest pain, Negative for edema, palpitations. 14:30 Respiratory: Negative for cough, shortness of breath, wheezing. 14:30 Abdomen/GI: Negative for abdominal pain, nausea and vomiting. 14:30 Back: Negative for radiated pain. 14:30 Psych: Positive for anxiety, Negative for depression, drug dependence, auditory hallucinations, visual hallucinations, suicide gesture, suicidal ideation. 14:30 All other systems are negative. Exam: 14:30 ECG was reviewed by the Attending Physician. cp 14:33 Constitutional: The patient appears in no acute distress, alert, awake, cp non-diaphoretic, non-toxic, well developed, well nourished, anxious. 14:33 Head/Face: Normocephalic, atraumatic. cp 14:33 Eyes: Periorbital structures: appear normal, Pupils: equal, round, and reactive to light and accomodation, Conjunctiva: normal, no exudate, no injection, Lids and lashes: appear normal, bilaterally. 14:33 ENT: External ear(s): are unremarkable, Nose: is normal, Posterior pharynx: Airway: no evidence of obstruction, patent. 14:33 Neck: ROM/movement: is normal, is supple, without pain, no range of motions limitations. 14:33 Chest/axilla: Inspection: normal, Palpation: is normal, no crepitus, no tenderness. 14:33 Cardiovascular: Rate: tachycardic, Rhythm: regular, Edema: is not appreciated, JVD: is not appreciated. 14:33 Respiratory: the patient does not display signs of respiratory distress, Respirations: normal, no use of accessory muscles, no retractions, labored breathing, is not present, Breath sounds: are clear throughout, no decreased breath sounds. 14:33 Abdomen/GI: Inspection: abdomen appears normal, Palpation: abdomen is soft and non-tender, in all quadrants. 14:33 Back: pain, is absent. 14:33 Neuro: Orientation: to person, place \T\ time. Mentation: is normal, Motor: moves all fours, strength is normal. 14:33 Psych: Behavior/mood is anxious, Affect is animated, Patient has no thoughts/intents to harm self or others. Judgement / Insight is normal. Delusions/hallucinations are not present. Vital Signs: 14:23 BP 140 / 98; Pulse 134; Resp 26; Temp 98.5(O); Pulse Ox 98% on R/A; Weight 87.09 kg; ss Height 5 ft. 4 in. (162.56 cm); 14:39 BP 131 / 92; Pulse 109; Resp 22 S; Pulse Ox 98% on R/A; jd3 15:27 BP 126 / 84; Pulse 107; Resp 16; Pulse Ox 96% on R/A; ll2 14:23 Body Mass Index 32.96 (87.09 kg, 162.56 cm) MDM: 14:24 Patient medically screened. rozina 14:40 Differential diagnosis: drug withdrawal. acute psychotic break, depression, psychosis cp secondary to non-compliance. 15:44 Data reviewed: vital signs, nurses notes, lab test result(s), EKG. 15:44 Test interpretation: by ED physician or midlevel provider: ECG. Counseling: I had a cp detailed discussion with the patient and/or guardian regarding: the historical points, exam findings, and any diagnostic results supporting the discharge/admit diagnosis, lab results, the need for outpatient follow up, for definitive care, a family practitioner, to return to the emergency department if symptoms worsen or persist or if there are any questions or concerns that arise at home. Response to treatment: the patient's symptoms have markedly improved after treatment, VSS. Symptoms improved with meds and IV fluids, and as a result, I will discharge patient. 04/20 14:26 Order name: Acetaminophen; Complete Time: 15:32 04/20 15:33 Interpretation: Reviewed. 04/20 14:26 Order name: Basic Metabolic Panel; Complete Time: 15:32 04/20 15:33 Interpretation: Normal except: K 3.3; GLUC 124; GFR 74. 04/20 14:26 Order name: CBC with Diff; Complete Time: 15:32 04/20 15:33 Interpretation: Normal except: MPV 7.2. 04/20 14:26 Order name: ETOH Level; Complete Time: 15:32 04/20 14:26 Order name: Hepatic Function; Complete Time: 15:32 04/20 14:26 Order name: PT-INR; Complete Time: 15:32 04/20 14:26 Order name: Ptt, Activated; Complete Time: 15:32 04/20 14:26 Order name: Salicylate; Complete Time: 15:32 04/20 14:26 Order name: Urine Drug Screen; Complete Time: 15:32 04/20 14:57 Order name: Urine Dipstick--Ancillary (enter results); Complete Time: 15:32 04/20 14:57 Order name: Urine --Ancillary (enter results); Complete Time: 15:32 04/20 14:26 Order name: Urine Test (obtain specimen); Complete Time: 15:06 04/20 14:26 Order name: EKG; Complete Time: 14:27 04/20 14:26 Order name: EKG - Nurse/Tech; Complete Time: 14:27 cp 04/20 14:26 Order name: IV Saline Lock; Complete Time: 14:35 04/20 14:26 Order name: Labs collected and sent; Complete Time: 14:35 04/20 14:26 Order name: Urine Dipstick-Ancillary (obtain specimen); Complete Time: 15:06 cp EC:30 Rate is 129 beats/min. Rhythm is regular. [place] interval is normal. QRS interval is cp normal. QT interval is normal. T waves are Inverted in leads aVR, V1, V3. Administered Medications: 14:39 Drug: NS 0.9% 1000 ml Route: IV; Rate: 1 bolus; Site: left antecubital; jd3 15:35 Follow up: Response: No adverse reaction; IV Status: Completed infusion; IV Intake: jd3 1000ml 15:00 Drug: Ativan 0.5 mg Route: IVP; Site: left antecubital; jd3 16:00 Follow up: Response: No adverse reaction jd3 15:44 Drug: Potassium Effervescent Tablet 25 mEq Route: PO; jd3 16:00 Follow up: Response: No adverse reaction jd3 Disposition: 16:05 Chart complete. 04/21 04:38 Co-signature as Attending Physician, Aj Isaac MD I agree with the assessment and [facility] plan of care. Disposition: 04/20/20 15:44 Discharged to Home. Impression: Anxiety disorder, unspecified. - Condition is Stable. - Discharge Instructions: Panic Attacks, Generalized Anxiety Disorder. - Prescriptions for Vistaril 25 mg Oral capsule - take 1 capsule by ORAL route 4 times per day As needed as needed for anxiety; 30 capsule. - Medication Reconciliation Form, Thank You Letter, Antibiotic Education, Prescription Opioid Use form. - Follow up: Private Physician; When: 2 - 3 days; Reason: Recheck today's complaints. - Problem is an ongoing problem. - Symptoms have improved. Signatures: Dispatcher [employer] Aj Barney MD MD cha Smirch, Shelby RN RN Aj Smyth PA PA cp Davies, Jonathon RN RN jd3 Corrections: (The following items were deleted from the chart) 04/20 16:01 15:44 04/20/2020 15:44 Discharged to Home. Impression: Anxiety disorder, unspecified. jd3 Condition is Stable. Forms are Medication Reconciliation Form, Thank You Letter, Antibiotic Education, Prescription Opioid Use. Follow up: Private Physician; When: 2 - 3 days; Reason: Recheck today's complaints. Problem is an ongoing problem. Symptoms have improved. cp
[2020-04-20] MEDS ORDERED: POTASSIUM 25 MEQ EFFERV TAB ONE (15:50)
[2020-04-20 16:22] VITALS: TEMP 98.5
[2020-04-20 16:25] VITALS: BP 126/84; O2SAT 96
--- NOTE | 2020-04-21 05:51 | EKG ---
Test Date: 2020-04-20 Test Time: 14:25:26 Childcare Director: ROBBY MEASUREMENT RESULTS: Intervals: Rate: 129 MO: 154 QRSD: 78 QT: 288 QTc: 421 Bronson: P: 58 MO: 154 QRS: 61 T: 43 INTERPRETIVE STATEMENTS: Sinus tachycardia Nonspecific ST abnormality Abnormal ECG Compared to ECG 01/20/2020 17:28:11 ST (T wave) deviation now present Sinus rhythm no longer present Electronically Signed On 04-21-20 05:50:09 CDT by Jaleel Hinds
== END 2020-04-20 16:01 | disposition home or self-care (01) ==
LOC: ER 14:15
DX: F41.9 Anxiety disorder, unspecified (principal)
CPT/HCPCS: 96361; 93005; 85025; 80048; 36415; 80320; 80329 ×2; 81025; 85610; 80076; 80307 ×8; 85730; 81003; 96374; 99284; J7030